=== PATIENT | female | born 1955 | race Caucasian/White ===

== ENCOUNTER 2022-01-08 09:14 | Outpatient (RCR) | payer MEDICARE | END 2022-02-02 | disposition home or self-care (01) | LOC: PT | DX: M25.512 Pain in left shoulder (principal) ==

== ENCOUNTER 2024-03-21 21:28 | Emergency (ER) | payer MEDICARE ==
[2024-03-21] MEDS ORDERED: Cetirizine 10 MG TAB PO ONE (22:00)
[2024-03-21] MEDS ORDERED: Doxycycline Monohydrate 100 MG CAP PO ONE (22:00)
[2024-03-21] MEDS ORDERED: VIBRAMYCIN HYC100 MG PO (22:14)
[2024-03-21 22:16] VITALS: BP 148/77
== END 2024-03-21 22:20 | disposition home or self-care (01) ==
LOC: ED 21:28
DX: S90.862A Insect bite (nonvenomous), left foot, initial encounter (principal); L03.116 Cellulitis of left lower limb; F17.210 Nicotine dependence, cigarettes, uncomplicated; W57.XXXA Bitten or stung by nonvenomous insect and other nonvenomous arthropods, initial encounter